=== PATIENT | female | born 1975 | race African-American/Black ===

== ENCOUNTER 2018-07-23 00:17 | Emergency (ER) | payer OTHER, SELFPAY ==
[2018-07-23 00:40] LABS: Bilirubin Negative (Negative); Blood, Urine Negative (Negative); Clarity CLEAR (Clear); Glucose, Urine (Dipstick) Negative (Negative); Leukocyte Trace (Negative); Nitrite Negative (Negative); Protein, Urine (Dipstick) Negative (Neg-Trace); Specific Gravity, Urine 1.007 (1.002-1.036); Urobilinogen 0.2 mg/dL (0.2-1.0); pH, Urine 7.5 (5.0-9.0)
[2018-07-23 00:42] LABS: Bacteria/HPF None Seen HPF (None Seen); Hyaline Casts/LPF 0-3 HYALINE CAST LPF (0-3 Hyaline); Squamous Epithelial 0-3 HPF (0-3); WBC/HPF None Seen HPF (0-3)
[2018-07-23] MEDS ORDERED: Ketorolac Tromethamine 30 MG/ML VIAL ONE (00:49)
[2018-07-23] MEDS ORDERED: Ondansetron HCl/PF 4 MG/2 ML Vial ONE (00:49)
[2018-07-23 01:01] LABS: #Basophils 0.1 thou/uL (0.0-0.2); #Eosinphils 0.5 thou/uL (0.0-0.7); #Lymphocytes 1.9 thou/uL (1.20-3.40); #Monocytes 0.6 thou/uL (0.11-0.59); #Neutrophils 2.5 thou/uL (1.40-6.50); %Eosinophils 8.2 % (0.0-10.0); %Lymphocytes 34.9 % (21.0-51.0); %Monocytes 11.1 % (0.0-10.0); %Neutrophils 44.8 % (42.0-75.0); Hemoglobin 11.1 g/dL (12.0-16.0); Mean Corpuscular HGB CONC 31.3 g/dL (32.0-36.0); Mean Corpuscular Hemoglobin 26.8 pg (27.0-31.0); Mean Corpuscular Volume 85.4 fL (78.0-98.0); Platelet Count 225 thou/uL (130-400); RBC Distribution Width 14.6 % (11.5-14.5); Red Blood Cell (RBC) Count 4.16 mill/uL (4.20-5.40); White Blood Cell (WBC) Count 5.5 thou/uL (4.8-10.8)
[2018-07-23 01:17] LABS: ALT (SGPT) 13 U/L (8-55); AST (SGOT) 15 U/L (5-34); Albumin 4.1 g/dL (3.5-5.0); Alkaline Phosphatase 69 U/L (40-150); Anion Gap 11 mmol/L (10-20); BUN (Urea Nitrogen) 10 mg/dL (7.0-18.7); Bilirubin, Total 0.2 mg/dL (0.2-1.2); Calc. Creatinine Clearance 0 mL/min (70-130); Calcium 9.5 mg/dL (7.8-10.44); Carbon Dioxide 27 mmol/L (22-29); Chloride 102 mmol/L (98-107); Estimated GFR-MDRD 90; Globulin 3.8 g/dL (2.4-3.5); Glucose 107 mg/dL (70-105); Lipase 25 U/L (8-78); Potassium 3.8 mmol/L (3.5-5.1); Protein, Total 7.9 g/dL (6.0-8.3); Sodium 136 mmol/L (136-145)
[2018-07-23 04:20] LABS: Pregnancy Test - Urine (BHCG) Negative (Negative); Pregu Control Background? CLEAR/WHITE (CLR/WHITE); Pregu Control Bar Appear? YES (CONTROL BAR); Specific Gravity 1.007 (1.002-1.036)
--- NOTE | 2018-07-24 14:24 | EKG ---
Test Reason : Blood Pressure : / mmHG Vent. Rate : 065 BPM Atrial Rate : 065 BPM P-R Int : 140 ms QRS Dur : 104 ms QT Int : 428 ms P-R-T Axes : 029 049 019 degrees QTc Int : 445 ms Normal sinus rhythm Normal ECG Confirmed by DARWIN GARCIA D.O. ([id number]), makeup editor DANIELLE BRAVO ([id number]) on 07/24/2018 2:24:09 PM Referred By: Confirmed By:DARWIN GARCIA D.O.
== END 2018-07-23 02:09 | disposition home or self-care (01) ==
LOC: ERS 00:17
DX: A09 Infectious gastroenteritis and colitis, unspecified (principal); I10 Essential (primary) hypertension; Z87.891 Personal history of nicotine dependence
CPT/HCPCS: 80053; 81003; 81015; 81025; 83690; 85025; 93005; 96361; 96374; 96375; J1885; J2405

== ENCOUNTER 2018-10-22 16:20 | Emergency (ER) | payer OTHER ==
--- NOTE | 2018-10-22 16:53 | RAD ---
LEFT FOOT THREE VIEWS: HISTORY: A 43-year-old female with a history of left foot pain for two weeks. FINDINGS: Mild degenerative changes, particularly of the toes. No acute fracture or dislocation. IMPRESSION: Degenerative changes without fracture or dislocation. POS: MEAGHAN
[2018-10-22] MEDS ORDERED: Ketorolac Tromethamine 60 MG/2 ML VIAL ONE (18:16)
== END 2018-10-22 18:47 | disposition home or self-care (01) ==
LOC: ERS 16:20
DX: M72.2 Plantar fascial fibromatosis (principal); K08.89 Other specified disorders of teeth and supporting structures; I10 Essential (primary) hypertension; Z87.891 Personal history of nicotine dependence
CPT/HCPCS: 96372; J1885

== ENCOUNTER 2018-10-23 03:52 | Emergency (ER) | payer OTHER | END 2018-10-23 06:25 | disposition home or self-care (01) | LOC: ERS 03:52 | DX: K03.81 Cracked tooth (principal); K04.7 Periapical abscess without sinus; I10 Essential (primary) hypertension; Z87.891 Personal history of nicotine dependence; Z79.899 Other long term (current) drug therapy | CPT/HCPCS: 99282 ==

== ENCOUNTER 2020-01-16 17:58 | Observation (INO) | payer OTHER, SELFPAY ==
[2020-01-16 19:10] LABS: #Eosinphils 0.5 thou/uL (0.0-0.7); #Lymphocytes 2.5 thou/uL (1.20-3.40); #Monocytes 0.6 thou/uL (0.11-0.59); #Neutrophils 3.5 thou/uL (1.40-6.50); %Basophils 0.6 % (0.0-1.0); %Eosinophils 7.4 % (0.0-10.0); %Lymphocytes 34.6 % (21.0-51.0); %Monocytes 7.7 % (0.0-10.0); %Neutrophils 49.7 % (42.0-75.0); Hemoglobin 10.5 g/dL (12.0-16.0); Mean Corpuscular HGB CONC 31.7 g/dL (32.0-36.0); Mean Corpuscular Hemoglobin 26.1 pg (27.0-31.0); Mean Corpuscular Volume 82.1 fL (78.0-98.0); Mean Platelet Volume 8.4 fL (7.4-10.4); Platelet Count 247 thou/uL (130-400); RBC Distribution Width 15.1 % (11.5-14.5); Red Blood Cell (RBC) Count 4.03 mill/uL (4.20-5.40); White Blood Cell (WBC) Count 7.1 thou/uL (4.8-10.8)
[2020-01-16 19:25] LABS: Bacteria/HPF None Seen HPF (None Seen); Bilirubin Negative (Negative); Blood, Urine Negative (Negative); Clarity Clear (Clear); Glucose, Urine (Dipstick) Normal (Negative); Leukocyte 500 Leu/uL (Negative); Nitrite Negative (Negative); Protein, Urine (Dipstick) Negative (Neg-Trace); RBC/HPF 0-3 HPF (0-3); Urobilinogen Normal mg/dL (Less than 2)
[2020-01-16 19:40] LABS: ALT (SGPT) 14 U/L (8-55); AST (SGOT) 16 U/L (5-34); Albumin 4.1 g/dL (3.5-5.0); Alkaline Phosphatase 79 U/L (40-110); Anion Gap 10 mmol/L (10-20); BUN (Urea Nitrogen) 11 mg/dL (7.0-18.7); Bilirubin, Total 0.2 mg/dL (0.2-1.2); Calc. Creatinine Clearance 0 mL/min (70-130); Calcium 9.1 mg/dL (7.8-10.44); Carbon Dioxide 25 mmol/L (22-29); Chloride 105 mmol/L (98-107); Estimated GFR-MDRD Greater than 90; Globulin 3.6 g/dL (2.4-3.5); Glucose 95 mg/dL (70-105); Potassium 3.8 mmol/L (3.5-5.1); Protein, Total 7.7 g/dL (6.0-8.3); Sodium 136 mmol/L (136-145)
--- NOTE | 2020-01-16 21:47 | RAD ---
XR Chest 1 View Portable HISTORY: Hypertension COMPARISON: None FINDINGS: The heart size is upper limits of normal. The lungs are well expanded without focal areas o f consolidation, pneumothorax or pleural effusions. IMPRESSION: No radiographic evidence of acute cardiopulmonary process.
[2020-01-16 21:50] LABS: BHCG - Serum Negative (NEGATIVE); Pregs Control Background? CLEAR/WHITE (CLR/WHITE); Pregs Control Bar Appear? YES (CONTROL BAR)
--- NOTE | 2020-01-16 22:13 | CT ---
CT BRAIN WITHOUT CONTRAST: HISTORY: Paresthesias. Hypertension FINDINGS: No evidence of acute infarct, hemorrhage, midline shift or abnormal extra-axial fluid collections is seen. The ventricular size is appropriate and the basilar cisterns are patent. The bony calvarium is intact. The visualized paranasal sinuses and mastoid air cells are well aerated. IMPRESSION: No CT evidence of acute intracranial process.
[2020-01-16] MEDS ORDERED: hydrALAZINE 20 MG/ML VIAL ONE (23:14)
[2020-01-16] MEDS ORDERED: Aspirin Chewable 81 MG TAB ONE (23:14)
[2020-01-17] MEDS ORDERED: Labetalol HCl 100 MG/20 ML VIAL ONE (00:14)
--- NOTE | 2020-01-17 00:16 | PDOC.FPRHP ---
- History of Present Illness Chief Complaint: tingling sensation around mouth History of Present Illness: 44yo AAF with PMHx of HTN who has not seen a PCP recently and off all medications presents for 3 days of tinglying around her lips that progressed to twitching today so she decided to be evaluated. She has had tingling of her BL LE for about 3 weeks with no acute changes. No associated weakness, pain, loss of sensation, dizziness, CP, SOB, n/v, diarrhea/constipation. Does state she had a cold a few days ago with cough and congestion, but has since resolved. Previously saw Dr. Alas but does never went back ED Course: Given hydralazine. CT head negative. - Allergies/Adverse Reactions Allergies Allergy/AdvReac Type Severity Reaction Status Date / Time naproxen Allergy Severe Anaphylaxis Verified 01/17/20 03:39 - Home Medications Medication Instructions Recorded Confirmed Type No Known 01/17/20 01/17/20 History - History PMHx: HTN, untreated PSHx: tubal ligation FHx: no known medical conditions Social: previous smoker stopped 2018, 1ppd 10 years, social drinker, THC use within the last week - Review of Systems General: denies: fever/chills, weight/appetite/sleep changes, fatigue Eyes: denies: eye pain, vision changes ENT: denies: nasal congestion, rhinorrhea Respiratory: denies: cough, congestion, shortness of breath Cardiovascular: denies: chest pain, palpitation, edema Gastrointestinal: denies: nausea, vomiting, diarrhea Genitourinary: denies: dysuria Skin: denies: rashes, itching Musculoskeletal: denies: pain Neurological: denies: weakness - Vital signs BP: 223/105 HR: 89 RR: 18 Tmax: 98.7 Pox: 98% on RA Wt: 117kg - Physical Exam Constitutional: NAD, awake, alert and oriented, well developed (resting comfortably in bed) HEENT: PERRLA, EOMI, conjunctiva clear, grossly normal vision, grossly normal hearing, normal nasal mucosa, MMM, oropharynx clear Neck: supple, trachea midline Heart: RRR, normal S1/S2, no murmurs/rubs/gallops, pulses present, no edema Lungs: CTAB, no respiratory distress, good air movement, no rales/rhonchi, no wheezing Abdomen: soft, non-tender, bowel sounds present, no masses/distention Musculoskeletal: normal structure, normal tone Neurological: no focal deficit, CN II-XII intact, normal sensation Skin: no rash/lesions, good turgor Heme/Lymphatic: no unusual bruising or bleeding Psychiatric: normal mood and affect, good judgment and insight, intact recent and remote memory FMR H&P: Results - Labs Result Diagrams: 01/16/20 19:02 01/16/20 19:02 Lab results: WBC 7.1 thou/uL (4.8-10.8) 01/16/20 19:02 Hgb 10.5 g/dL (12.0-16.0) L 01/16/20 19:02 Hct 33.1 % (36.0-47.0) L 01/16/20 19:02 MCV 82.1 fL (78.0-98.0) 01/16/20 19:02 Plt Count 247 thou/uL (130-400) 01/16/20 19:02 Neutrophils % 49.7 % (42.0-75.0) 01/16/20 19:02 Sodium 136 mmol/L (136-145) 01/16/20 19:02 Potassium 3.8 mmol/L (3.5-5.1) 01/16/20 19:02 Chloride 105 mmol/L (98-107) 01/16/20 19:02 Carbon Dioxide 25 mmol/L (22-29) 01/16/20 19:02 BUN 11 mg/dL (7.0-18.7) 01/16/20 19:02 Creatinine 0.79 mg/dL (0.6-1.1) 01/16/20 19:02 Glucose 95 mg/dL (70-105) 01/16/20 19:02 Calcium 9.1 mg/dL (7.8-10.44) 01/16/20 19:02 Total Bilirubin 0.2 mg/dL (0.2-1.2) 01/16/20 19:02 AST 16 U/L (5-34) 01/16/20 19:02 ALT 14 U/L (8-55) 01/16/20 19:02 Alkaline Phosphatase 79 U/L (40-110) 01/16/20 19:02 Serum Total Protein 7.7 g/dL (6.0-8.3) 01/16/20 19:02 Albumin 4.1 g/dL (3.5-5.0) 01/16/20 19:02 Urine Ketones Trace mg/dL (Negative) A 01/16/20 19:10 Urine Blood Negative (Negative) 01/16/20 19:10 Urine Nitrite Negative (Negative) 01/16/20 19:10 Ur Leukocyte Esterase 500 Joann/uL (Negative) A 01/16/20 19:10 Urine RBC 0-3 HPF (0-3) 01/16/20 19:10 Urine WBC 4-6 HPF (0-3) A 01/16/20 19:10 Ur Squamous Epith Cells 11-20 HPF (0-3) A 01/16/20 19:10 Urine Bacteria None Seen HPF (None Seen) 01/16/20 19:10 - EKG Interpretation EKG: No acute ST or T wave changes. Normal axis. Good R wave progression. NSR. - Radiology Interpretation Chest x-ray Status: report reviewed by me (no acute CPP) CT scan - head Status: report reviewed by me (no acute intracranial process) FMR H&P: A/P - Problem List (1) Hypertensive urgency Current Visit: Yes Status: Acute Code(s): I16.0 - HYPERTENSIVE URGENCY - Plan 44yo AAF with h/o untreated HTN presents for HTN urgency. #HTN urgency - known history of HTN, untreated - BP 238/129 -> 209/118 with hydralazine in ED - No s/s of end-organ damage. CT head negative. - will cont hydralazine prn with goal SBP around 180 - will start PO norvasc 5mg and losartan 50mg - will likely need continued OP titration of BP meds, needs to establish with PCP - risk stratify with FLP #Normocytic anemia - Hb 10.5 - no s/s of acute blood loss, VSS other than hypertensive - will orer iron studies, B12, folate #Paraesthesias - lytes WNL, will check Mg and phos - will check TSH, B12, A1C - would be 2/2 elevated BP vs undiagnosed DM - no sxs at this time, will monitor PCP: None - CC Code: Full Diet: HH, Low Na VTE: Lovenox IVF: SL Disposition/LOS: Admit to stroke obs for HTN urgency. Will start PO BP meds. Anticipate LOS < 48hrs. FMR H&P: Upper Level - Plan Date/Time: 01/17/20 0014 PCP: MOISES HPI: Patient comes in for 3 days of tingling around lips and found to have hypertension urgency. Denies CP, SOB, weakness one side or the other, decreased sensation, slurred speech, or facial droop. She has not seen a doctor in recent memory and does not take any medications at home. REVIEW OF SYSTEMS: Gen: no fever, chills, or sweats Neuro: denies headache Eyes: no visual changes ENT: no hearing changes, no sore throat, no congestion Resp: denies cough, SOB Card: denies CP, palpitations GI: denies abd pain, N/V/D Skin: no rash, no erythema PHYSICAL EXAMINATION: General: NAD, alert and oriented x3 HEENT: PERRLA, EOMI, normal sclera, oropharynx without erythema or exudate Neck: Supple. Full ROM. Heart/Cardiovascular System: RRR, Cap refill < 3 seconds, no rub, no murmur Lungs/Respiratory System: CTA-B, no resp distress Abdomen/Gastro-Intestinal System: normal bowel sounds, nontender Extremities: Warm extremities. No cyanosis or edema Neuro: No gross deficits appreciated. CN 2-12 grossly intact Psychiatry: Awake, Alert and cooperative with exam Skin: no rashes, ulcers Musculoskeletal: Full ROM A/P: # Hypertensive urgency - Initial BP 238/129 - Hydralazine PRN - Goal decrease MAP 25% in first 2-6 hrs, gradually titrate to goal DBP <110 - Started losartan, amlodipine - No evidence of end organ damage at this time, CT head negative - Trend trops # Normocytic anemia - Hgb 10.5, iron studies, b12, folate # No PCP - Risk stratify; FLP, A1c Fluids: TKO Code status: full PPx: lovenox Dispo: obs, anticipate d/c tomorrow pending BP control
[2020-01-17 01:09] LABS: Amphetamine Not Detected (NotDetected); Barbiturates Screen Not Detected (NotDetected); Benzodiazepine Screen Not Detected (NotDetected); Cocaine Metabolite Screen Not Detected (NotDetected); Medtox Control Line Valid? VALID (VALID); Medtox Reader # READER 4; Methadone Not Detected (NotDetected); Methamphetamine Not Detected (NotDetected); Opiate Screen Not Detected (NotDetected); Oxycodone Screen Not Detected (NotDetected); Phencyclidine (PCP) Not Detected (NotDetected); THC/Cannabinoid Screen Not Detected (NotDetected); Tricyclic Screen Not Detected (NotDetected)
[2020-01-17] MEDS ORDERED: Ondansetron ODT 4 MG TAB PO PRN (01:16)
[2020-01-17] MEDS ORDERED: hydrALAZINE 20 MG/ML VIAL SLOW IVP PRN ×2 (01:16→15:53)
[2020-01-17] MEDS ORDERED: Calcium Carbonate 500 MG ChewTAB PO PRN (01:16)
[2020-01-17] MEDS ORDERED: Enoxaparin Sodium 40 MG/0.4 ML SYRINGE SC SCH (01:16)
[2020-01-17 01:27] LABS: Troponin I 0.012 ng/mL (< 0.028)
[2020-01-17] MEDS ORDERED: Amlodipine 5 MG TAB PO SCH (02:00)
[2020-01-17 03:29] VITALS: BMI 41.0
[2020-01-17 04:56] LABS: #Eosinphils 0.5 thou/uL (0.0-0.7); #Lymphocytes 1.3 thou/uL (1.20-3.40); #Monocytes 0.7 thou/uL (0.11-0.59); #Neutrophils 3.4 thou/uL (1.40-6.50); %Basophils 0.8 % (0.0-1.0); %Eosinophils 8.3 % (0.0-10.0); %Lymphocytes 22.8 % (21.0-51.0); %Neutrophils 57.1 % (42.0-75.0); Hemoglobin 10.3 g/dL (12.0-16.0); Mean Corpuscular HGB CONC 31.2 g/dL (32.0-36.0); Mean Corpuscular Hemoglobin 25.5 pg (27.0-31.0); Mean Corpuscular Volume 81.7 fL (78.0-98.0); Mean Platelet Volume 8.6 fL (7.4-10.4); Platelet Count 239 thou/uL (130-400); RBC Distribution Width 15.3 % (11.5-14.5); Red Blood Cell (RBC) Count 4.04 mill/uL (4.20-5.40); White Blood Cell (WBC) Count 5.9 thou/uL (4.8-10.8)
[2020-01-17 05:08] LABS: Hemoglobin A1c 5.8 % (4.0-6.0)
[2020-01-17 05:27] LABS: Iron 46 ug/dL (50-170); Iron Binding Capacity, Total 359 mcg/dL (265-497); Magnesium 1.9 mg/dL (1.6-2.6); Phosphorus 2.3 mg/dL (2.3-4.7)
[2020-01-17 05:29] LABS: Anion Gap 11 mmol/L (10-20); BUN (Urea Nitrogen) 9 mg/dL (7.0-18.7); Calc. Creatinine Clearance 189 mL/min (70-130); Calcium 9.1 mg/dL (7.8-10.44); Carbon Dioxide 24 mmol/L (22-29); Cardiac Risk 2.8 (Less than 4.5); Chloride 106 mmol/L (98-107); Cholesterol 161 mg/dl (< 200 Desired); Estimated GFR-MDRD Greater than 90; Glucose 104 mg/dL (70-105); HDL Cholesterol 58 mg/dL (>60 Neg Risk); LDL Cholesterol, Calculated 93 mg/dL; Potassium 3.9 mmol/L (3.5-5.1); Sodium 137 mmol/L (136-145); Triglycerides 48 mg/dL (Less than 150)
[2020-01-17 05:50] LABS: Ferritin 5.94 ng/mL (10-291); Thyroid Stimulating Hormone 1.7452 uIU/mL (0.35-4.94)
[2020-01-17] MEDS: Acetaminophen 325 MG TAB PO PRN ×3 (06:18→18:55)
--- NOTE | 2020-01-17 07:30 | PDOC.FM ---
- Subjective Subjective: She says she has the perioral tingling and she said she was experiencing it in her legs and some on the dorsal aspect of her hands this morning. She complained of having a headache early this morning, but it has resolved. She thinks it is most likely sinus related. - Objective MAR Reviewed: Yes Vital Signs & Weight: Vital Signs (12 hours) Temp Pulse Resp BP BP Pulse Ox 01/17/20 06:17 84 161/97 H 01/17/20 02:23 98 198/91 H 01/17/20 01:01 98.4 F 87 20 161/91 H 96 Weight Weight 122.425 kg Result Diagrams: 01/17/20 04:26 01/17/20 04:26 EKG Reviewed by me: Yes (Sinus rhythm 70-90s) Phys Exam - Physical Examination Constitutional: NAD HEENT: moist MMs, oral pharynx no lesions Neck: supple, full ROM Respiratory: no wheezing, no rales, no rhonchi, clear to auscultation bilateral Cardiovascular: RRR, no significant murmur Gastrointestinal: soft, non-tender, positive bowel sounds Musculoskeletal: no edema, pulses present Neurological: non-focal, normal sensation, moves all 4 limbs Psychiatric: normal affect Dx/Plan (1) Anemia Code(s): D64.9 - ANEMIA, UNSPECIFIED Status: Acute (2) Hypertensive urgency Code(s): I16.0 - HYPERTENSIVE URGENCY Status: Acute - Plan Plan: 44yo AAF with h/o untreated HTN presents for HTN urgency. 1. HTN urgency BP 238/129 > 209/118 with hydralazine in ED * known history of HTN, untreated * No s/s of end-organ damage. * CT head negative. * Cont hydralazine prn with goal SBP around 180 * Started Norvasc 5mg and Losartan 50mg PO * Will need continued OP titration of BP meds, needs to establish with PCP * ASCVD: 2. Normocytic anemia Hb 10.5 * No s/s of acute blood loss, VSS other than hypertensive * iron studies indicate Iron Deficiency Anemia * Will start iron and vitamin C * B12 & Folate wnl 3. Paraesthesias * BMP WNL * Mg and phos * TSH, B12, A1C wnl * Would be 2/2 elevated BP vs undiagnosed DM * No sxs at this time, will monitor Code Status: Full Diet: HH, Low Na VTE: Lovenox IVF: SL PCP: CC Disposition/LOS: Stroke obs for HTN urgency. Likely d/c today. Will need close follow up. LOS <48hrs.
[2020-01-17] MEDS ORDERED: FLU VACC QS2019-20(6MOS UP)/PF 60 MCG/0.5 ML SYRINGE IM ONE (09:00)
[2020-01-17] MEDS: Amlodipine 5 MG TAB PO SCH (09:29)
[2020-01-17] MEDS: Losartan 25 MG TAB PO SCH (09:30)
[2020-01-17] MEDS: Enoxaparin Sodium 40 MG/0.4 ML SYRINGE SC SCH (12:04)
--- NOTE | 2020-01-17 12:52 | PRG ---
DATE OF SERVICE: 01/17/2020 ADDENDUM: Addendum to the note of Dr. Daren Maki. Ms. Scott connor very is a pleasant 44-year-old black female patient. She was admitted with tingling around her lips as well as some tingling in both lower extremities. There was no associated weakness or any other focal deficit. She was noted to have an anemia with hemoglobin of 10.5, hematocrit of 33.1, and MCV of 82. Subsequent workup revealed a low iron, elevated TIBC, and a ferritin of only 5.94. She has a history of "very heavy menstrual periods" since menarche at the age of 11. Her B12 and folate levels are both normal. We will continue with an outpatient workup after placing her on iron. She will need a GI workup to include colonoscopy and possibly EGD. She will need a transvaginal ultrasound and possible consideration for uterine fibroids as well as von Willebrand disease. I have assessed her the importance of following up as an outpatient, so we can complete her workup. Job ID: [id number]
[2020-01-17] MEDS ORDERED: diphenhydrAMINE 25 MG in Sodium Chloride 0.9% 50 ML IVPB SCH (19:00)
[2020-01-17] MEDS ORDERED: Metoclopramide HCl 10 MG/2 ML VIAL IVP SCH (19:15)
[2020-01-17] MEDS ORDERED: diphenhydrAMINE 50 MG/ML VIAL IVP SCH (19:15)
[2020-01-17] MEDS ORDERED: diphenhydrAMINE 50 MG CAP PO SCH (19:15)
[2020-01-17] MEDS ORDERED: Lactated Ringer's 1,000 ML IV SCH (19:15)
[2020-01-17] MEDS: Docusate 100 MG CAP PO SCH (20:39)
--- NOTE | 2020-01-18 06:14 | PDOC.FM ---
- Subjective Subjective: She feels well this morning. She has not had a headache. She said she is not currently having any tingling in her hands, but says she was earlier in the morning. - Objective MAR Reviewed: Yes Vital Signs & Weight: Vital Signs (12 hours) Temp Pulse Resp BP Pulse Ox 01/18/20 03:50 98.9 F 88 14 131/73 99 01/18/20 00:00 98.8 F 90 14 149/90 H 96 01/17/20 23:23 98.8 F 90 14 149/90 H 96 01/17/20 19:41 98.7 F 89 14 166/97 H 94 L Weight Weight 122.016 kg I&O: 01/16/20 01/17/20 01/18/20 06:59 06:59 06:59 Intake Total 300 1000 Output Total 100 Balance 300 900 Result Diagrams: 01/17/20 04:26 01/17/20 04:26 EKG Reviewed by me: Yes (Sinus rhythm 70-80s) Phys Exam - Physical Examination Constitutional: NAD HEENT: moist MMs, oral pharynx no lesions Neck: no nodes, supple Respiratory: no wheezing, no rales, no rhonchi, clear to auscultation bilateral Cardiovascular: RRR, no significant murmur Gastrointestinal: soft, non-tender, positive bowel sounds Musculoskeletal: no edema, pulses present Neurological: moves all 4 limbs Lymphatic: no nodes Psychiatric: normal affect Skin: no rash, normal turgor Dx/Plan (1) Anemia Code(s): D64.9 - ANEMIA, UNSPECIFIED Status: Acute (2) Hypertensive urgency Code(s): I16.0 - HYPERTENSIVE URGENCY Status: Acute - Plan Plan: 44yo AAF with h/o untreated HTN presents for HTN urgency. 1. HTN urgency- Resolved BP 238/129 > 209/118 with hydralazine in ED * known history of HTN, untreated * No s/s of end-organ damage. * CT head negative. * Cont hydralazine prn with goal SBP around 180 * Started Norvasc 5mg and Losartan 50mg PO * Will need continued OP titration of BP meds, needs to establish with PCP * ASCVD: 1.9% * SBP: 130-140s 2. Normocytic anemia Hb 10.5 * No s/s of acute blood loss, VSS other than hypertensive * iron studies indicate Iron Deficiency Anemia * Will start iron and vitamin C * B12 & Folate wnl 3. Paraesthesias Being treated for iron deficiency, will see if this resolves her symtpoms * BMP WNL * Mg and phos * TSH, B12, A1C wnl * Would be 2/2 elevated BP vs undiagnosed DM * No sxs at this time, will monitor Code Status: Full Diet: HH, Low Na VTE: Lovenox IVF: SL PCP: CC Disposition/LOS: Stroke obs for HTN urgency. d/c today and f/u outpt. LOS < 48hrs.
[2020-01-18] MEDS ORDERED: Ferrous Sulfate 325 MG TAB PO SCH (08:00)
[2020-01-18] MEDS ORDERED: Ascorbic Acid 500 mg Chewable Tablet PO SCH (09:00)
[2020-01-18] MEDS ORDERED: Fluticasone Propionate Nasal Spray 16 gm Bottle NASAL SCH (09:00)
[2020-01-18] MEDS: Enoxaparin Sodium 40 MG/0.4 ML SYRINGE SC SCH (09:44)
[2020-01-18] MEDS: Amlodipine 5 MG TAB PO SCH (09:45)
[2020-01-18] MEDS: Docusate 100 MG CAP PO SCH (09:45)
[2020-01-18] MEDS: Losartan 25 MG TAB PO SCH (09:46)
--- NOTE | 2020-01-18 11:28 | PRG ---
DATE OF SERVICE: 01/18/2020 ADDENDUM: Ms. Chavez's blood pressure is under better control. She will be discharged today. We again reiterated the importance of her following up for workup of her iron deficiency anemia. Job ID: [id number]
[2020-01-18 11:34] VITALS: BP 153/88; TEMP 98.8
--- NOTE | 2020-01-19 23:28 | DIS ---
DATE OF ADMISSION: 01/16/2020 DATE OF DISCHARGE: 01/18/2020 RESIDENT: Daren Maki MD ADMITTING ATTENDING: Harris Clement MD DISCHARGE ATTENDING: Harris Clement MD CONSULTS: None. PROCEDURES PERFORMED: 1. Brain CT on 01/[address] evidence of acute intracranial process. 2. Chest x-ray on 01/16. No radiographic evidence of acute cardiopulmonary process. PRIMARY DIAGNOSIS: 1. Hypertensive urgency 2. normocytic anemia. SECONDARY DIAGNOSIS: 1. Paresthesias. DISCHARGE MEDICATIONS: 1. Amlodipine 5 mg daily. 2. Vitamin C 500 mg daily. 3. Colace 100 mg b.i.d. 4. Ferrous sulfate 325 mg daily. 5. Losartan 50 mg daily. DISCONTINUED MEDICATIONS: 1. Labetalol. 2. Benadryl. 3. Lactated Ringer's. 4. Reglan. HISTORY OF PRESENT ILLNESS: A 44-year-old female with past medical history of hypertension , has not been seen by PCP recently, not following medications, presents for 3 days of tingling around her lips that progressed to twitching today, so she decided to be evaluated. She had had tingling of her bilateral lower extremities for about 3 weeks with no acute changes. No associated weakness, pain, loss of sensation, dizziness, chest pain, shortness of breath, nausea, vomiting, diarrhea, constipation. Does say she had cold a few days ago with cough and congestion, but has since resolved. 1. Hypertensive urgency, resolved. Blood pressures were initially 238/129. * Discharge blood pressure was 130s to 140s systolic. * She has a known history of hypertension that is untreated. * No symptoms of end-organ damage. * CT as noted above is negative. * Discharged on Norvasc 5 mg and losartan 50 mg. 2. Normocytic anemia. Hemoglobin 10.5. * No symptoms of acute blood loss. * Vital signs stable other than hypertensive iron studies indicate iron deficiency anemia. * Started on vitamin C, B12 and folate within normal limits. 3. Paresthesias being treated for iron deficiency. * We will see if this resolves with iron treatment. * Mag and phos within normal limits. * TSH, B12, and A1c within normal limits. * Could be secondary to elevated blood pressures versus undiagnosed diabetes. * No symptoms at this time. DISPOSITION: Stable. DISCHARGE INSTRUCTIONS: 1. Location: Home. 2. Activity: As tolerated. 3. Diet: Heart healthy, low-sodium. 4. Followup: Follow up with [facility] [place] [facility] in 7 days. Job ID: [id number] MTDD
== END 2020-01-18 14:16 | disposition home or self-care (01) ==
LOC: ERS 17:58 → ERHOLD 23:30 → 2SE 01-17 00:57
PROVIDERS: ADMIT Family Medicine; ATTEND Family Medicine
DX: I16.0 Hypertensive urgency (principal); D64.9 Anemia, unspecified; R20.2 Paresthesia of skin; I10 Essential (primary) hypertension; E61.1 Iron deficiency; Z87.891 Personal history of nicotine dependence; Z88.6 Allergy status to analgesic agent; Z91.14 Patient's other noncompliance with medication regimen
CPT/HCPCS: 36415; 70450; 71045; 80048; 80053; 80061; 80306; 81003; 81015; 82607; 82728; 82746; 83036; 83540; 83550; 83735; 84100; 84443; 84484; 84703; 85025; 93005; 96361; 96372; 96374; 96375; G0378; J0360; J1200; J1650; J2765; Q0162

== ENCOUNTER 2020-05-28 02:12 | Inpatient (IN) | payer OTHER ==
[2020-05-28] MEDS ORDERED: Enoxaparin Sodium 100 MG/ML SYRINGE ONE (02:46)
[2020-05-28] MEDS ORDERED: Aspirin 325 MG TAB ONE (02:46)
[2020-05-28] MEDS ORDERED: Diltiazem 125 MG/25 ML ONE (02:46)
[2020-05-28] MEDS ORDERED: Enoxaparin Sodium 30 MG/0.3 ML SYRINGE ONE (02:46)
[2020-05-28 02:52] LABS: #Eosinphils 0.5 thou/uL (0.0-0.7); #Monocytes 0.4 thou/uL (0.11-0.59); #Neutrophils 2.5 thou/uL (1.40-6.50); %Basophils 0.4 % (0.0-1.0); %Eosinophils 8.7 % (0.0-10.0); %Lymphocytes 36.9 % (21.0-51.0); %Monocytes 8.1 % (0.0-10.0); Hemoglobin 13.1 g/dL (12.0-16.0); Mean Corpuscular HGB CONC 31.5 g/dL (32.0-36.0); Mean Corpuscular Hemoglobin 29.1 pg (27.0-31.0); Mean Corpuscular Volume 92.3 fL (78.0-98.0); Mean Platelet Volume 8.1 fL (7.4-10.4); Platelet Count 224 thou/uL (130-400); RBC Distribution Width 12.5 % (11.5-14.5); Red Blood Cell (RBC) Count 4.52 mill/uL (4.20-5.40); White Blood Cell (WBC) Count 5.4 thou/uL (4.8-10.8)
[2020-05-28 03:01] LABS: INR-International Normal Ratio 0.9; PTT 26.7 sec (22.9-36.1); Prothrombin Time 12.3 sec (12.0-14.7)
[2020-05-28 03:15] LABS: ALT (SGPT) 15 U/L (8-55); AST (SGOT) 16 U/L (5-34); Albumin 4.2 g/dL (3.5-5.0); Alkaline Phosphatase 68 U/L (40-110); Anion Gap 11 mmol/L (10-20); BUN (Urea Nitrogen) 11 mg/dL (7.0-18.7); Bilirubin, Total 0.3 mg/dL (0.2-1.2); Calc. Creatinine Clearance 0 mL/min (70-130); Calcium 9.3 mg/dL (7.8-10.44); Carbon Dioxide 28 mmol/L (22-29); Chloride 103 mmol/L (98-107); Estimated GFR-MDRD 90; Globulin 3.6 g/dL (2.4-3.5); Glucose 119 mg/dL (70-105); Magnesium 1.8 mg/dL (1.6-2.6); Potassium 3.6 mmol/L (3.5-5.1); Protein, Total 7.8 g/dL (6.0-8.3); Sodium 138 mmol/L (136-145)
[2020-05-28 03:26] LABS: Amphetamine Not Detected (NotDetected); Barbiturates Screen Not Detected (NotDetected); Benzodiazepine Screen Not Detected (NotDetected); Cocaine Metabolite Screen Not Detected (NotDetected); Medtox Reader # READER 4; Methadone Not Detected (NotDetected); Methamphetamine Not Detected (NotDetected); Opiate Screen Not Detected (NotDetected); Oxycodone Screen Not Detected (NotDetected); Phencyclidine (PCP) Not Detected (NotDetected); THC/Cannabinoid Screen Detected (NotDetected); Tricyclic Screen Not Detected (NotDetected)
[2020-05-28 03:27] LABS: Medtox Control Line Valid? VALID (VALID)
--- NOTE | 2020-05-28 04:20 | PDOC.FPRHP ---
- History of Present Illness Chief Complaint: irregular heartbeat History of Present Illness: Pt is a 45 yo F with PMH of HTN who presents with heart palpitations. She got off of work around 1800 on 05/27 and was laying down when she experienced an episode where she was short of breath, felt like her heart was racing and she had a feeling of warmth. She took a few deep breaths and it subsided. She checked her BP and it was 152/96. She takes her BP at home and notes occasional elevated blood pressures in the 150s. Patient endorses compliance with blood pressure medications of Losartan and Amlodipine daily. Patient says she has felt this a few times in the past but this was more than usual. Does admit increased stresses in her life. She states she drank a 6 pack of beer and a mixed drink on Thursday and smoked marijuana, but denies any symptoms with these recreational activities. - Allergies/Adverse Reactions Allergies Allergy/AdvReac Type Severity Reaction Status Date / Time naproxen Allergy Severe Anaphylaxis Verified 05/28/20 05:44 - Home Medications Medication Instructions Recorded Confirmed Type Amlodipine [Norvasc] 5 mg PO DAILY 30 Days #30 tab 01/18/20 05/28/20 Rx Ascorbic Acid [Vitamin C] 500 mg PO DAILY 30 Days #30 tab 01/18/20 05/28/20 Rx Docusate [Colace] 100 mg PO BID 30 Days #60 cap 01/18/20 05/28/20 Rx Ferrous Sulfate [Feosol] 325 mg PO QAM-WM 30 Days #30 tab 01/18/20 05/28/20 Rx Losartan [Cozaar] 50 mg PO DAILY 30 Days #30 tab 01/18/20 05/28/20 Rx - History PMHx: HTN PSHx: tubal ligation FHx: mom has a history of HTN Social: "social" alcohol use. Smokes marijuana. Quit smoking tobacco 3 years ago. Smoked 1/2ppd for 10 years - Review of Systems General: denies: fever/chills, fatigue Eyes: denies: eye pain, vision changes ENT: denies: nasal congestion, rhinorrhea Respiratory: reports: shortness of breath Cardiovascular: reports: palpitation. denies: chest pain, edema Gastrointestinal: denies: nausea, vomiting Genitourinary: denies: incontinence, dysuria Skin: denies: rashes, lesions Musculoskeletal: denies: pain, tenderness Neurological: denies: syncope Psychological: denies: anxiety, depression - Vital signs VITAL SIGNS ThuMay 28, 2020 04:45 OLVIN Barrow, Riri BP: 135/64, Pulse: 76, Resp: 14, Temp: 98.2 (Oral), Pain: 0, O2 sat: 99 on ( Room Air), Time: 05/28/2020 04:45. - Physical Exam Constitutional: NAD, awake, alert and oriented HEENT: normocephalic and atraumatic, EOMI, grossly normal vision, grossly normal hearing Neck: trachea midline, no JVD Chest: no lesions Heart: RRR, no murmurs/rubs/gallops, pulses present, no edema Lungs: CTAB Abdomen: soft, non-tender, bowel sounds present Musculoskeletal: normal structure, normal tone Neurological: no focal deficit, normal sensation Skin: no rash/lesions, good turgor Heme/Lymphatic: no unusual bruising or bleeding, no purpura Psychiatric: normal mood and affect FMR H&P: Results - Labs Result Diagrams: 05/28/20 02:38 05/28/20 02:38 Lab results: WBC 5.4 thou/uL (4.8-10.8) 05/28/20 02:38 Hgb 13.1 g/dL (12.0-16.0) 05/28/20 02:38 Hct 41.7 % (36.0-47.0) 05/28/20 02:38 MCV 92.3 fL (78.0-98.0) 05/28/20 02:38 Plt Count 224 thou/uL (130-400) 05/28/20 02:38 Neutrophils % 46.0 % (42.0-75.0) 05/28/20 02:38 Sodium 138 mmol/L (136-145) 05/28/20 02:38 Potassium 3.6 mmol/L (3.5-5.1) 05/28/20 02:38 Chloride 103 mmol/L (98-107) 05/28/20 02:38 Carbon Dioxide 28 mmol/L (22-29) 05/28/20 02:38 BUN 11 mg/dL (7.0-18.7) 05/28/20 02:38 Creatinine 0.83 mg/dL (0.6-1.1) 05/28/20 02:38 Glucose 119 mg/dL (70-105) H 05/28/20 02:38 Calcium 9.3 mg/dL (7.8-10.44) 05/28/20 02:38 Total Bilirubin 0.3 mg/dL (0.2-1.2) 05/28/20 02:38 AST 16 U/L (5-34) 05/28/20 02:38 ALT 15 U/L (8-55) 05/28/20 02:38 Alkaline Phosphatase 68 U/L (40-110) 05/28/20 02:38 Serum Total Protein 7.8 g/dL (6.0-8.3) 05/28/20 02:38 Albumin 4.2 g/dL (3.5-5.0) 05/28/20 02:38 FMR H&P: A/P - Plan 1. a fib with RVR - seen on ekg in ED, was bolused with diltiazem and started on drip, rate controlled. Also given therapeutic dose of lovenox - diltiazem drip at 2.5mg/hr with plans to wean, consult cardiology - [id number] score =2, will need anticoagulation, will wait for cardiology recommendation 2. HTN - uncontrolled, 150's systolic on home monitor -currently controlled with dilt drip, continue home meds and monitor 3. THC use -discussed with patient and encouraged cessation 4. EtOH use - discussed with patient that this could have led to current symptoms FMR H&P: Upper Level - Plan Date/Time: 05/28/20 0414 Gianfranco San [email or web address], have evaluated this patient and agree with findings/ plan as outlined by mechanical intern resident. Pertinent changes/additions are listed here. 45F with pmh of THC use presents for palpitations. found to be in afib with rvr. Pt only complains of palpitations. received dilt bolus and drip in addition to therapeutic lovenox in ED. On exam pt had converted to NSR on monitor and vitals were stable and wnl. Cardiopulmonary exam wnl, no peripheral edema. A/P Afib with RVR A- likely 2/2 THC and EtOH but will need to r/o other etiologies. Pt initially was in RVR as seen on EKG but is s/p diltiazem bolus and drip and now HR is normal sinus rhythm and in 70s (as seen on monitor). P- continue dilt drip at reduced rate 2.5mg/hr, plan to wean as tolerated -trend trops x3 -consult cards in AM -anticoagulation per cardiology, [id number] 2 -possibly start BB once dilt is weaned THC use -counselled to quit EtOH binging -counselled cessation HTN -home meds CODE: FULL IVF: KVO Ppx: pt is s/p th lovenox x1 dispo: inpt, tele Addendum - Attending - Attending Attestation Date/Time: 05/28/20 [id number] I personally evaluated the patient and discussed the management with Dr. [] I agree with the History, Examination, Assessment and Plan documented above with any addition or exceptions noted below.
[2020-05-28] MEDS ORDERED: Bisacodyl 5 MG TAB PO PRN (05:18)
[2020-05-28] MEDS ORDERED: Diltiazem 125 MG in Sodium Chloride 0.9% 100 ML IVPB SCH (05:18)
[2020-05-28 05:52] VITALS: BMI 41.9
[2020-05-28 06:20] LABS: Phosphorus 2.8 mg/dL (2.3-4.7)
[2020-05-28 06:27] LABS: Troponin I 0.023 ng/mL (< 0.028)
--- NOTE | 2020-05-28 07:55 | RAD ---
EXAM: Portable chest PROVIDED CLINICAL HISTORY: Palpitations and shortness of breath COMPARISON: 01/16/2020 FINDINGS: Cardiac and mediastinal silhouette is within normal limits. No focal consolidation, pleural fluid or pneumothorax evident. IMPRESSION: No evidence for an acute cardiopulmonary process.
[2020-05-28] MEDS: Docusate 100 MG CAP PO SCH ×2 (08:06→20:30)
[2020-05-28] MEDS: Apixaban 5 MG TAB PO SCH ×2 (08:06→20:30)
[2020-05-28] MEDS: Ascorbic Acid 500 mg Chewable Tablet PO SCH (08:06)
[2020-05-28] MEDS ORDERED: Acetaminophen 500 MG TAB PO PRN (08:07)
[2020-05-28] MEDS: Ferrous Sulfate 325 MG TAB PO SCH (08:07)
[2020-05-28 08:38] LABS: Hemoglobin A1c 5.7 % (4.0-6.0)
[2020-05-28 08:57] LABS: Troponin I 0.019 ng/mL (< 0.028)
[2020-05-28] MEDS ORDERED: Metoprolol Tartrate 25 MG TAB PO SCH (09:00)
[2020-05-28] MEDS ORDERED: Losartan 25 MG TAB PO SCH (09:00)
[2020-05-28] MEDS ORDERED: Amlodipine 5 MG TAB PO SCH (09:00)
--- NOTE | 2020-05-28 11:56 | EKG ---
Test Reason : Blood Pressure : / mmHG Vent. Rate : 083 BPM Atrial Rate : 083 BPM P-R Int : 144 ms QRS Dur : 092 ms QT Int : 368 ms P-R-T Axes : 068 036 026 degrees QTc Int : 432 ms Sinus rhythm with marked sinus arrhythmia Possible Left atrial enlargement Cannot rule out Anterior infarct , age undetermined Abnormal ECG Confirmed by AUGUSTINE JACINTO DO ([id number]), editor book ISAURO PRIETO ([id number]) on 05/28/2020 11:56:36 AM Referred By: Confirmed By:AUGUSTINE JACINTO DO
--- NOTE | 2020-05-28 11:57 | EKG ---
Test Reason : Blood Pressure : / mmHG Vent. Rate : 170 BPM Atrial Rate : 170 BPM P-R Int : 000 ms QRS Dur : 086 ms QT Int : 290 ms P-R-T Axes : 000 044 001 degrees QTc Int : 487 ms Atrial fibrillation with rapid ventricular response with premature ventricular or aberrantly conducte d complexes Abnormal ECG Confirmed by AUGUSTINE JACINTO DO ([id number]), social media editor ISAURO PRIETO ([id number]) on 05/28/2020 11:56:49 AM Referred By: Confirmed By:AUGUSTINE JACINTO DO
--- NOTE | 2020-05-28 11:57 | EKG ---
Test Reason : Blood Pressure : / mmHG Vent. Rate : 106 BPM Atrial Rate : 106 BPM P-R Int : 148 ms QRS Dur : 092 ms QT Int : 372 ms P-R-T Axes : 065 037 024 degrees QTc Int : 494 ms Sinus tachycardia and Premature ventricular complexes or Fusion complexes Possible Left atrial enlargement Cannot rule out Anterior infarct , age undetermined Abnormal ECG Confirmed by AUGUSTINE JACINTO DO ([id number]), video effects editor ISAURO PRIETO ([id number]) on 05/28/2020 11:56:45 AM Referred By: Confirmed By:AUGUSTINE JACINTO DO
[2020-05-28] MEDS ORDERED: hydrALAZINE 20 MG/ML VIAL SLOW IVP PRN (16:24)
[2020-05-29 04:45] LABS: Anion Gap 11 mmol/L (10-20); BUN (Urea Nitrogen) 13 mg/dL (7.0-18.7); Calc. Creatinine Clearance 146 mL/min (70-130); Calcium 9.1 mg/dL (7.8-10.44); Carbon Dioxide 26 mmol/L (22-29); Chloride 104 mmol/L (98-107); Estimated GFR-MDRD 73; Glucose 98 mg/dL (70-105); Potassium 3.9 mmol/L (3.5-5.1); Sodium 137 mmol/L (136-145)
--- NOTE | 2020-05-29 05:52 | PDOC.FM ---
- Subjective Subjective: Patient is resting comfortably in bed. She denies palpitations, chest pain or SOB. Notes she feels much better. - Objective MAR Reviewed: Yes Vital Signs & Weight: Vital Signs (12 hours) Temp Pulse Resp BP BP Pulse Ox 05/29/20 05:33 84 131/62 05/29/20 04:00 98.3 F 84 16 131/62 96 05/29/20 01:36 63 14 145/72 H 05/28/20 19:35 98.8 F 74 14 142/65 H 94 L 05/28/20 18:08 138/63 05/28/20 18:04 179/94 H Weight Weight 127.958 kg I&O: 05/27/20 05/28/20 05/29/20 06:59 06:59 06:59 Intake Total 780 Balance 780 Result Diagrams: 05/29/20 09:35 05/29/20 03:58 Phys Exam - Physical Examination Constitutional: NAD HEENT: PERRLA, moist MMs Respiratory: clear to auscultation bilateral Cardiovascular: RRR Gastrointestinal: soft, non-tender Musculoskeletal: no edema Neurological: non-focal, normal sensation, moves all 4 limbs Psychiatric: normal affect, A&O x 3 Skin: no rash Dx/Plan (1) Atrial fibrillation with RVR Code(s): I48.91 - UNSPECIFIED ATRIAL FIBRILLATION Status: Acute (2) Hypertension Code(s): I10 - ESSENTIAL (PRIMARY) HYPERTENSION Status: Chronic (3) Tobacco use Code(s): Z72.0 - TOBACCO USE Status: Acute - Plan Plan: 45F with pmh of THC use presents for palpitations and was found to be in afib with rvr. Afib with RVR Likely 2/2 THC and ETOH but ruling out other etiologies Resolved with dilt bolus 05/28- patient was sinus rhythm with bradycardia on tele - Patient transitioned to PO metorprolol succinate 25mg daily - Today 05/29 normal sinus on tele Trops neg x 3, a1c 5.7%, TSH 1.2 Echo 60-65% - [id number]: 2, started Eliquis 5mg yesterday - Cards Dr. Coley consulted, appreciate their recs HTN - BPs got in upper 180s, low 190s 05/28 afternoon, resolved with hydralazine 10 , bps normalized - started nifedipine 60mg, switched metoprolol tartrate to metoprolol succinate 25mg daily, and increased losartan 50 to 100mg per cards recs - risk stratified with a1c and lipid panel, a1c was 5.7, total cholesterol was 166. ASCVD risk score was 2.9%, no indication to start a statin at this time. THC use -counselled to quit EtOH binging -counselled cessation CODE: FULL IVF: KVO Ppx: Eliquis dispo: likely discharge later today Case discussed with Dr. Chapman. Addendum - Attending - Attending Attestation Date/Time: 05/29/20 [id number] I personally evaluated the patient and discussed the management with Dr. Monroy I agree with the History, Examination, Assessment and Plan documented above with any addition or exceptions noted below - Patient without complaints. No further palpaitations. Afebrile VSS. A/P: 1) New onset A-fib with RVR- now in sinus and rate controlled; appreciate cardiology assistance; stable for d/c today.
[2020-05-29] MEDS ORDERED: NIFEdipine XL 60 MG TAB PO SCH (06:00)
--- NOTE | 2020-05-29 07:33 | CON ---
DATE OF CONSULTATION: 05/28/2020 REASON FOR CONSULTATION: Tachycardia appears to be atrial fibrillation. HISTORY OF PRESENT ILLNESS: Ms. Angelita Chavez is a very pleasant 45-year-old woman with longstanding history of hypertension which has been somewhat difficult to control. Recently, she has been having recurrent episodes of feeling her heart racing, generally it would only happen for a few seconds, but what prompted this admission was that she had prolonged episodes of rapid heart rate and feeling her palpitations she could actually see her chest shaking the rate was going so fast. The initial EKG that I see here at 2:25 a.m. was sinus rhythm, but an EKG at 2:28 a.m. revealed narrow complex tachycardia, slightly irregular with a heart rate of 170, it looks like atrial fibrillation likely. The patient did not have chest pain with it, but it is very anxiety provoking to her. The patient states she has had [id number] blood pressure. MEDICATIONS AT HOME: 1. Amlodipine 5 mg a day. 2. Losartan 50 mg a day. 3. Iron. 4. Ascorbic acid. 5. Vitamin C. ALLERGIES: TO NAPROXEN. SOCIAL HISTORY: No alcohol or tobacco. FAMILY HISTORY: Noncontributory. PAST MEDICAL HISTORY: She said she is very overweight now. She had lost a lot of weight then regained it. She does have trouble sleeping and wakes up and sometimes wakes up tired. PHYSICAL EXAMINATION: GENERAL: This is a pleasant 45-year-old woman. She is 5 feet 9 inches tall, 284 pounds, BMI is 42. EYES: Sclerae nonicteric. MOUTH: Mucous membranes moist. NECK: Supple. No lymphadenopathy. LUNGS: Clear. CARDIAC: Normal S1, normal S2. There is no murmur, rub, or gallop. ABDOMEN: Obese, nontender. EXTREMITIES: Warm and dry. No clubbing or cyanosis. There is no significant edema. PERTINENT LABORATORY DATA: Troponin in the negative range of 0.023. LDL cholesterol is 101. TSH 1.214. Echocardiogram was unremarkable. Ejection fraction of 60% to 65%. ASSESSMENT: 1. Atrial fibrillation with a rapid ventricular response. 2. Chads-Vasc2 with hypertension and female status. PLAN: 1. Agree with apixaban. 2. We will change from amlodipine to nifedipine long-acting. 3. Long-acting beta krystyna. 4. Probably be released home tomorrow. We will check with her in the morning. Outpatient stress testing could be done. A PET scan would be the best in view of her body size, but there was no evidence of any ischemia when she was very tachycardiac. There is no ST depression with the tachycardia. Job ID: [id number]
[2020-05-29 07:46] VITALS: TEMP 98.1
[2020-05-29] MEDS: Ascorbic Acid 500 mg Chewable Tablet PO SCH (08:44)
[2020-05-29] MEDS: Docusate 100 MG CAP PO SCH (08:44)
[2020-05-29] MEDS: Apixaban 5 MG TAB PO SCH (08:44)
[2020-05-29] MEDS: Ferrous Sulfate 325 MG TAB PO SCH (08:44)
[2020-05-29] MEDS ORDERED: Multivit, Chewable SF 1 TAB PO SCH (09:00)
[2020-05-29] MEDS ORDERED: Losartan 25 MG TAB PO SCH (09:00)
--- NOTE | 2020-05-29 09:16 | PRG ---
DATE OF SERVICE: 05/29/2020 SUBJECTIVE: Ms. Chavez is feeling well today. No complaints. Blood pressure is improved. No chest pain or pressure. OBJECTIVE: VITAL SIGNS: Blood pressure today is 143/78, pulse is 80. LUNGS: Clear. CARDIAC: Normal S1, normal S2. ABDOMEN: Obese, nontender. EXTREMITIES: No edema. The patient did have increased vaginal bleeding with her periods last night out today. ASSESSMENT: 1. Paroxysmal atrial fibrillation with a rapid rate. 2. CHADS-VASc2 with hypertension and female status. 3. Hypertension, historically has not been well controlled, difficult to control. PLAN: 1. She currently is on Procardia XL 60 mg a day, dose can be increased to 90 if needed. 2. Metoprolol succinate 50 mg a day. 3. Losartan 100 mg a day. 4. Apixaban 5 mg twice a day. 5. I will ask her to see us in the office in 2 to 3 weeks. Did review indications for treatment and rationale of Eliquis with reduced reduction of stroke risk. Job ID: [id number]
[2020-05-29 10:02] LABS: Hemoglobin 12.9 g/dL (12.0-16.0); Platelet Count 217 thou/uL (130-400)
[2020-05-29 11:15] VITALS: BP 139/64
--- NOTE | 2020-05-30 18:04 | DIS ---
DATE OF ADMISSION: 05/28/2020 DATE OF DISCHARGE: 05/29/2020 RESIDENT: Maris Monroy DO ADMITTING ATTENDING: Valarie Chapman MD DISCHARGE ATTENDING: Valarie Chapman MD CONSULTS: Cardiology, Dr. Coley. PROCEDURE: Echocardiogram with an ejection fraction of 60% to 65%. PRIMARY DIAGNOSIS: New onset atrial fibrillation with rapid ventricular response. SECONDARY DIAGNOSES: Hypertension, EtOH use, and THC use. DISCHARGE MEDICATIONS: 1. Nifedipine 60 mg p.o. at 0600 qd. 2. Metoprolol succinate 50 mg p.o. daily. 3. Losartan 100 mg p.o. daily. 4. Apixaban 5 mg p.o. b.i.d. 5. Vitamin C 500 mg p.o. daily. 6. Docusate 100 mg b.i.d. 7. Ferrous sulfate 325 mg p.o. q.a.m. Discontinued Medications: amlodipine 5 mg oral daily and losartan potassium ( Cozaar) 50 mg p.o. daily. HISTORY OF PRESENT ILLNESS/HOSPITAL COURSE: Patient is a 45-year-old female, with a past medical history of hypertension, who presented with heart palpitations accompanied by shortness of breath. She states that she has felt this a few times in the past, but it was more than usual and notes that she has had increased stresses in her life. She states that she drank a 6-pack of beer and a mixed drink on Thursday and smoked marijuana, but denies any symptoms with these recreational activities. EKG in the ER revealed narrow complex tachycardia, slightly irregular with a heart rate of 170 and a diagnosis of AFib with RVR was made. AFib was resolved with diltiazem bolus and the patient was in sinus rhythm with bradycardia on tele initially and then normal sinus on Day 2. Troponins were negative x3. A1c was 5.7%. TSH 1.2. Echo was 60% to 65%. Cardiology, Dr. Coley, was consulted. Patient was started on Eliquis 5 mg yesterday due to CHADS2-VASc score of 2. Blood pressure reached the upper 180s and low 190 systolic on Day 1, was resolved with hydralazine 10. Dr. Coley started the patient on nifedipine 60 mg, metoprolol succinate 25 mg daily , and increased her home losartan from 50 to 100 mg. He also stopped her home amlodipine. She was counseled to quit THC use and counseled on cessation of alcohol binging. DISPOSITION: Stable. DISCHARGE INSTRUCTIONS: 1. Location: Home. 2. Diet: Heart healthy. 3. Activity: As tolerated. 4. Followup: Follow up with [facility] PCP, Dr. Rice in 7 days. Also, follow up with Dr. Coley, [employer] Clerk, within 14 days. Job ID: [id number] [id number]
== END 2020-05-29 15:02 | disposition home or self-care (01) | DRG 310 ==
LOC: ERS 02:12 → 2NO 05:23
PROVIDERS: ADMIT Family Medicine; ATTEND Family Medicine
DX: I48.0 Paroxysmal atrial fibrillation (principal); I10 Essential (primary) hypertension; F12.90 Cannabis use, unspecified, uncomplicated; Z88.8 Allergy status to other drugs, medicaments and biological substances; Z98.51 Tubal ligation status; Z87.891 Personal history of nicotine dependence; Z71.51 Drug abuse counseling and surveillance of drug abuser; Z71.41 Alcohol abuse counseling and surveillance of alcoholic; Z72.89 Other problems related to lifestyle
CPT/HCPCS: 36415; 71045; 80048; 80053; 80061; 80306; 83036; 83735; 84100; 84443; 84484; 85014; 85018; 85025; 85049; 85610; 85730; 93005; 93306; J0360; J1650

== ENCOUNTER 2022-12-28 13:38 | Emergency (ER) | payer BC | END 2022-12-28 17:16 | disposition home or self-care (01) | LOC: ERS 13:38 | DX: M71.22 Synovial cyst of popliteal space [Baker], left knee (principal); M71.21 Synovial cyst of popliteal space [Baker], right knee; I10 Essential (primary) hypertension; Z87.891 Personal history of nicotine dependence | CPT/HCPCS: 93970 ==

== ENCOUNTER 2023-06-27 19:47 | Emergency (ER) | payer BC ==
[2023-06-27] MEDS ORDERED: Ketorolac Tromethamine 30 MG/ML VIAL ONE ×2 (20:26→20:31)
[2023-06-27] MEDS ORDERED: predniSONE 20 MG TAB ONE (20:26)
== END 2023-06-27 21:26 | disposition home or self-care (01) ==
LOC: ERS 19:47
DX: M54.50 Low back pain, unspecified (principal); R05.9 Cough, unspecified; Z87.891 Personal history of nicotine dependence
CPT/HCPCS: 71045; J1885; J7512

== ENCOUNTER 2024-09-06 22:49 | Emergency (ER) | payer BC ==
[2024-09-07] MEDS ORDERED: Orphenadrine Citrate 60 MG/2 ML VIAL ONE (00:16)
[2024-09-07] MEDS ORDERED: Acetaminophen 500 MG TAB ONE (00:16)
== END 2024-09-07 01:25 | disposition home or self-care (01) ==
LOC: ERS 22:49
DX: M54.50 Low back pain, unspecified (principal); M53.3 Sacrococcygeal disorders, not elsewhere classified; I10 Essential (primary) hypertension; Z87.891 Personal history of nicotine dependence
CPT/HCPCS: 96372; 99283; J2360

== ENCOUNTER 2024-11-26 06:15 | Emergency (ER) | payer BC ==
[2024-11-26] MEDS ORDERED: Ondansetron ODT 4 MG TAB ONE (06:54)
[2024-11-26] MEDS ORDERED: predniSONE 20 MG TAB ONE (06:54)
[2024-11-26] MEDS ORDERED: Pseudoephedrine HCl 30 MG TAB PO SCH (07:00)
== END 2024-11-26 07:55 | disposition home or self-care (01) ==
LOC: ERS 06:15
DX: J10.1 Influenza due to other identified influenza virus with other respiratory manifestations (principal); I10 Essential (primary) hypertension; Z87.891 Personal history of nicotine dependence
CPT/HCPCS: 87428; 99283; J7512; Q0162

== ENCOUNTER 2025-08-14 16:23 | Emergency (ER) | payer OTHER ==
[2025-08-14] MEDS ORDERED: Orphenadrine Citrate 100 MG ER.TAB ONE (19:14)
[2025-08-14] MEDS ORDERED: predniSONE 20 MG TAB ONE (19:14)
[2025-08-14] MEDS ORDERED: HYDROcodone/Acetaminophen 5/325 mg Tablet ONE (19:14)
== END 2025-08-14 20:57 | disposition home or self-care (01) ==
LOC: ERS 16:23
DX: S16.1XXA Strain of muscle, fascia and tendon at neck level, initial encounter (principal); M25.511 Pain in right shoulder; I10 Essential (primary) hypertension; I48.91 Unspecified atrial fibrillation; Z87.891 Personal history of nicotine dependence; Z79.01 Long term (current) use of anticoagulants; X58.XXXA Exposure to other specified factors, initial encounter
CPT/HCPCS: 36415; 71045; 84484; 93005; J7512